=== PATIENT | male | born 1995 | race Caucasian/White ===

== ENCOUNTER 2021-04-19 10:50 | Emergency (ER) | payer SELFPAY ==
[~2021-04-19] VITALS: Ht 180.3 cm; Wt 81.7 kg
[2021-04-19 11:02] VITALS: BP 159/84
[2021-04-19 11:38] LABS: BASO # 0.1 x10^3/uL (0.0-0.2); BASO % 1 % (0-3); EOS % 0 % (0-3); HEMATOCRIT 46.2 % (39.0-53.0); HEMOGLOBIN 16.2 g/dL (13.0-17.5); LYMPH # 1.6 x10^3/uL (1.0-4.8); LYMPH % 16 % (24-48); MEAN CORPUSCULAR HEMOGLOBIN 32 pg (25-35); MEAN CORPUSCULAR HGB CONC 35 g/dL (31-37); MEAN CORPUSCULAR VOLUME 92 fL (79-100); MONO # 0.7 x10^3/uL (0.0-1.1); MONO % 7 % (0-9); NEUT # 7.5 x10^3uL (1.8-7.7); NEUT % 76 % (31-73); PLATELET COUNT 357 x10^3/uL (140-400); RED BLOOD COUNT 5.05 x10^6/uL (4.30-5.70); RED CELL DISTRIBUTION WIDTH 12.3 % (11.5-14.5); WHITE BLOOD COUNT 9.9 x10^3/uL (4.0-11.0)
--- NOTE | 2021-04-19 11:38 | PHYS DOC ---
Past History Past Surgical History: No Surgical History (BERNIE MURILLO APRN) Adult General Chief Complaint Chief Complaint: TESTICULAR PAIN OR INJURY HPI HPI Patient is a 24-year-old male presents to the emergency department concerning left testicular swelling and pain. Patient reports at approximately 1600 yesterday he was lifting heavy objects when he felt a slight discomfort in his left testicle, rated pain less than a 1 out of 10, reports he took no pain medications or other nonpharmacological therapies for discomfort, reports waking up this morning with left testicular swelling and pain rated at a 3 out of 10 [address] any bouncy car or touching or other manual manipulation, otherwise reports he is 0 out of 10 pain. Patient denies penile discharge, burning with urination, increased urinary frequency, denies pain with urination, denies seeing blood in his urine. Denies penile discharge. Denies STI concerns however does report having monogamous sex unprotected with his fiance. Patient states he has not had sex or masturbated or had an erection since the pain started yesterday at 1600. Patient denies abdominal pain or discomfort, denies nausea, vomiting, diarrhea constipation or seeing blood in the stool. Patient denies recent fever or chills, reports his immunizations are up-to-date, denies throat pain or neck pain. Denies difficulty swallowing, denies rashes to his skin or to his genitals. Patient reports a right-sided inguinal hernia repair when he was 7 years old, denies other surgical history, takes no prescription medications or [id number] medications or supplements at home, denies allergies to medicines. Patient denies family history of cancers, and reports a family history of heart disease on his mother and father side of the family. Denies cigarette smoking however does report vaping, occasional EtOH consumption, states he does smoke marijuana. Patient denies other illicit drug use. (BERNIE MURILLO APRN) Review of Systems Review of Systems 14 body systems of review of systems have been reviewed. See HPI for pertinent positives and negative responses, otherwise all other systems are negative, nonpertinent or noncontributory. Constitutional: Negative except as outlined in HPI above. Skin: Negative except as outlined in HPI above. Eyes: Negative except as outlined in HPI above. HENT: Negative except as outlined in HPI above. Respiratory: Negative except as outlined in HPI above. Cardiovascular: Negative except as outlined in HPI above. GI: Negative except as outlined in HPI above. : Negative except as outlined in HPI above. Musculoskeletal: Negative except as outlined in HPI above. Integument: Negative except as outlined in HPI above. Neurologic: Negative except as outlined in HPI above. Endocrine: Negative except as outlined in HPI above. Lymphatic: Negative except as outlined in HPI above. Psychiatric: Negative except as outlined in HPI above. (BERNIE MURILLO APRN) Allergies Allergies Allergies Coded Allergies Type Severity Reaction Last Updated Verified No Known Drug Allergies 04/19/21 No (BERNIE MURILLO APRN) Physical Exam Physical Exam Constitutional: Well developed, well nourished, no acute distress, non-toxic appearance. 24-year-old male in no apparent distress. HENT: Normocephalic, atraumatic. Oropharynx moist, pink, no deep tissue infectious process appreciated, no lymphadenopathy of the head or neck appreciated. Eyes: Conjunctiva normal, no discharge. Neck: Normal range of motion. Cardiovascular: Distal cap refill less than 2 seconds, no cyanosis appreciated. Lungs & Thorax: Patient is in no respiratory distress, no adventitious lung sounds appreciated. Abdomen: Bowel sounds normal, soft, no tenderness, no masses, no pulsatile masses. No bruising or skin discoloration of the abdomen. Skin: Warm, dry, no erythema, no rash. Back: No tenderness, no CVA tenderness. Extremities: No tenderness, no cyanosis, no clubbing, ROM intact, no edema. Neurologic: Alert and oriented X 3, normal motor function, normal sensory function, no focal deficits noted. Psychologic: Affect normal, judgement normal, mood normal. : No rashes or lesions to the penis or genitals or surrounding structures, mild erythema with swelling to the left testicle, no appreciable hernia, pain with palpation of the left testicle, no abnormalities of the right testicle, no discharge from urinary meatus. (BERNIE MURILLO APRN) Current Patient Data Vital Signs Vital Signs Date Time Temp Pulse Resp B/P (MAP) Pulse Ox O2 Delivery O2 Flow Rate FiO2 04/19/21 11:02 110 20 159/84 (109) 99 Lab Results Laboratory Tests Test 04/19/21 11:19 04/19/21 13:11 White Blood Count 9.9 x10^3/uL Red Blood Count 5.05 x10^6/uL Hemoglobin 16.2 g/dL Hematocrit 46.2 % Mean Corpuscular Volume 92 fL Mean Corpuscular Hemoglobin 32 pg Mean Corpuscular Hemoglobin Concent 35 g/dL Red Cell Distribution Width 12.3 % Platelet Count 357 x10^3/uL Neutrophils (%) (Auto) 76 % Lymphocytes (%) (Auto) 16 % Monocytes (%) (Auto) 7 % Eosinophils (%) (Auto) 0 % Basophils (%) (Auto) 1 % Neutrophils # (Auto) 7.5 x10^3uL Lymphocytes # (Auto) 1.6 x10^3/uL Monocytes # (Auto) 0.7 x10^3/uL Eosinophils # (Auto) 0.0 x10^3/uL Basophils # (Auto) 0.1 x10^3/uL Sodium Level 138 mmol/L Potassium Level 3.7 mmol/L Chloride Level 100 mmol/L Carbon Dioxide Level 28 mmol/L Anion Gap 10 Blood Urea Nitrogen 10 mg/dL Creatinine 0.9 mg/dL Estimated GFR (Cockcroft-Gault) 104.6 Glucose Level 134 mg/dL Calcium Level 9.7 mg/dL Urine Collection Type Unknown Urine Color Yellow Urine Clarity Hazy Urine pH 8.0 Urine Specific [place] 1.020 Urine Protein Neg Urine Glucose (UA) Neg mg/dL Urine Ketones (Stick) Neg mg/dL Urine Blood Neg Urine Nitrite Neg Urine Bilirubin Neg Urine Urobilinogen Dipstick 1.0 mg/dL Urine Leukocyte Esterase Neg Urine RBC 0 /HPF Urine WBC 0 /HPF Urine Squamous Epithelial Cells Occ /LPF Urine Bacteria 0 /HPF Current Medications Medications (Trade) Dose Ordered Sig/David Route PRN Reason Start Time Stop Time Status Last Admin Dose Admin Iohexol (Omnipaque 300 Mg/ml) 75 ml 1X ONCE IV 04/19/21 13:45 04/19/21 13:46 DC 04/19/21 13:59 (BERNIE MURILLO APRN) EKG EKG [] (BERNIE MURILLO APRN) Radiology/Procedures Radiology/Procedures PATIENT: ALBERT JARAMILLO ACCOUNT: [id number] : 1995 LOCATION: ER AGE: 25 SEX: M EXAM STATUS: REG ER ORD. PHYSICIAN: BERNIE MURILLO APRN REASON: Left-sided testicular swelling with pain PROCEDURE: TESTICULAR/SCROTUM EXAM: SCROTAL SONOGRAM WITH DOPPLER. HISTORY: Left testicular pain and swelling. COMPARISON: None. FINDINGS: Grayscale and Doppler analysis of the scrotum and contents was performed. The right testicle measures 4.5 x 2.6 x 2.6 cm. The parenchyma is homogeneous without focal lesions. The epididymis appears normal. Internal flow is normal. There is no hydrocele. The left testicle measures 4.5 x 3.2 x 3.9 cm. There is a large region of hypoechogenicity at the proximal pole measuring approximately 3.2 x 2.4 cm. This demonstrates hyperemia. A more focal hypoechoic mass medially measures 15 x 13 x 12 mm and contains small cystic foci. A benign cyst in the epididymal head measures 18 x 14 x 13 mm. Internal flow is normal. There is no hydrocele. IMPRESSION: 1. A 15 mm hypoechoic mass in the left testicle is concerning for neoplasm such as a seminoma. A larger region of hypoechogenicity at the left testicular proximal pole may represent additional tumor or focal orchitis given hyperemia. Correlate with other data. Urologic consultation is recommended. Electronically signed by: Jan Ramirez MD (04/19/2021 12:42 PM) [facility] DICTATED AND SIGNED BY: ABRIL RAMIREZ MD DATE: 04/19/21 1237 CC: BERNIE MURILLO APRN; KRISTINA ZHU MD ~MTH0 0 PATIENT: ALBERT JARAMLILO ACCOUNT: [id number] : 1995 LOCATION: ER AGE: 25 SEX: M EXAM STATUS: REG ER ORD. PHYSICIAN: BERNIE MURILLO APRN REASON: Abnormal testicular ultrasound PROCEDURE: CT CHEST ABD PELVIS W/CONTRAST EXAM: CT OF THE CHEST, ABDOMEN AND PELVIS WITH CONTRAST. HISTORY: Testicular mass. TECHNIQUE: Computed tomography of the chest, abdomen and pelvis was performed after the intravenous administration of iodinated contrast. One or more of the following individualized dose reduction techniques were utilized for this exam ination: 1. Automated exposure control. 2. Adjustment of the mA and/or kV according to patient size. 3. Use of iterative reconstruction technique. COMPARISON: Today's testicular ultrasound. FINDINGS: Bone windows reveal no suspicious lesions. There are no pathologically enlarged mediastinal or axillary lymph nodes. Soft tissue density within the anterior mediastinal fat is likely a thymic remnant. There is no pleural or pericardial effusion. The heart is not enlarged. There is a normal variant origin of the left vertebral artery directly from the aortic arch. Lung windows reveal no infiltrates or suspicious nodules. A single necrotic left para-aortic lymph node is consistent with regional metastasis. It measures 3.3 x 2.1 x 2.9 cm. No other involved lymph nodes are identified. The left testicle is enlarged and heterogeneous. There is a small left hydroceles and a varicocele. The appendix is not inflamed. There is no small bowel obstruction. There is no ascites or peritoneal/omental lesions. A 7 mm hypoattenuating lesion in the spleen is indeterminate but most likely reflects a benign cyst or hemangioma. The liver, gallbladder, pancreas, adrenal glands and kidneys are unremarkable. IMPRESSION: 1. Enlarged, heterogeneous left testicle, consistent with malignancy. Correlate to exclude superimposed inflammation. 2. A single necrotic left para-aortic lymph node is consistent with metastatic disease. No other involved nodes or distant metastatic disease is identified. 3. A 7 mm lesion in the spleen is indeterminate but most likely benign. Attention on further follow-up. Electronically signed by: Jan Ramirez MD (04/19/2021 3:01 PM) [facility] DICTATED AND SIGNED BY: ABRIL RAMIREZ MD DATE: 04/19/21 1440 CC: BERNIE MURILLO APRN; KRISTINA ZHU MD ~MTH0 0 (BERNIE MURILLO APRN) Heart Score C/O Chest Pain: No Risk Factors: Risk Factors: DM, Current or recent (<one month) smoker, HTN, HLP, family history of CAD, obesity. Risk Scores: Risk Factors: DM, Current or recent (<one month) smoker, HTN, HLP, family history of CAD, obesity. (BERNIE MURILLO APRN) Course & Med Decision Making Course & Med Decision Making Pertinent Labs and Imaging studies reviewed. (See chart for details) 25-year-old male, vital signs reviewed, presents emergency department concerning left testicular swelling and pain. Physical examination concerning orchitis versus other testicular process versus hernia, will order testicular sonogram, IV saline lock, CBC, BMP, urinalysis assay, GC chlamydia testing on urine. Offered patient pain medication, patient refused stating he does not hurt at this time when he is sitting still. Abnormal testicular ultrasound concerning for mass of the left testicle, will order CT chest abdomen pelvis with contrast for further investigation, discussed findings with patient and reason for CT of chest abdomen pelvis, discussed with patient will be consulting with urology at [facility] after results. The patient's urine is not infected, there is no hematuria, patient is amenable to ED planning. Abnormal CT scan of chest abdomen pelvis suggestive of metastasis related to concerning necrotic para-aortic lymph node, abnormal spleen finding, called [facility] transfer line and spoke with transfer Customer Service Manager Alexandrea at 1520 who indicated she would contact their urology department physician head bone grinder and retur n call as soon as possible today. 1600 returned phone call from transfer line apparel trimmings sales representative Alexandrea who placed urologist Dr. Noe online, discussed patient case and ED work-up with Dr. Noe who recommended a beta hCG quant, alpha-fetoprotein, LDH be added to the patient's labs, states his office will contact the patient Wednesday or early this week to schedule surgery for removal of the left testicle and ongoing management. Recommended labs were ordered, discussed Dr. Noe's recommendations and planning with patient who is amenable to this plan. Called and discussed patient case and ED work-up with Dr. Meza recommendations with patient's primary care physician Dr. Zhu to make him aware of his patient's condition. ED discharge planning, patient will be contacted by [facility] urologist Dr. Noe to schedule surgery for left testicular removal this week. Discussed with the patient all findings and diagnostic testing as well as the need to follow-up with their primary care provider for further evaluation and treatment or return to the ED if any new or worsening symptoms. Strict return precautions were also discussed at length, the patient voiced understanding and agreement with the discharge planning. The patient was nontoxic in appearance, in no apparent distress, and hemodynamically stable at the time of disposition. (BERNIE MURILLO APRN) Dragon Disclaimer Dragon Disclaimer This electronic medical record was generated, in whole or in part, using a voice recognition dictation system. (BERNIE MURILLO APRN) Attending Co-Sign The patient was seen and interviewed as well as examined at the bedside. The chart was reviewed. The case was discussed. Agree with the plan of care. 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 You had an abnormal testicular ultrasound along with an abnormal CT scan of your chest abdomen pelvis. As we discussed, I have spoken to and discussed your emergency department case and work-up with [facility] urology specialist Dr. Noe who recommends you be seen in his office this week to discuss surgical removal of your left testicle. His office will contact you Wednesday or early this week at the telephone number you provided with our junior accounting clerk's. I have also discussed your case and emergency department work-up with your primary care physician Dr. Zhu so that he is aware of your current healthcare status. Please keep any and all of coming appointments with your urologist Dr. Noe and Dr. Zhu. Thank you for visiting our Emergency Department. It was a pleasure taking care of you today in the emergency department and we appreciate you trusting us with your care. If any additional problems come up don't hesitate to return to visit us. Please follow up with your primary care provider so they can plan additional care if needed and know about the problem that you had. If symptoms worsen come back to the Emergency Department. Any concerning symptoms that start such as chest pain, shortness of air, weakness or numbness on one side of the body, running high fevers or any other concerning symptoms return to the ER. EMERGENCY DEPARTMENT GENERAL DISCHARGE INSTRUCTIONS Thank you for coming to [facility] (ED) today and trusting us with you care. We trust that you had a positivie experience in our Emergency Department. If you wish to speak to the department management, you may call the director at [phone]. YOUR FOLLOW UP INSTRUCTIONS ARE FOLLOWS: 1. Do you have a private Doctor? If you do not have a private doctor, please ask for a resource list of physicians or clinics that may be able to assist you with follow up care. 2. The Emergency Physician has interpreted your x-rays. The X-Ray specialist will also review them. If there is a change in the findings, you will be notified in 48 hours when at all possible. 3. A lab test or culture has been done, your results will be reviewed and you will be notified if you need a change in treatment. ADDITIONAL INSTRUCTIONS AND INFORMATION: 1. Your care today has been supervised by a physician who is specially trained in emergency care. Many problems require more than one evaluation for a complete diagnosis and treatment. We recommend that you schedule your follow up appointment as recommended to ensure complete treatment of you illness or injury. If you are unable to obtain follow up care and continue to have a problem, or if your condition worsens, we recommend that you return to the ED. 2. We are not able to safely determine your condition over the phone nor are we able to give sound medical advice over the phone. For these safety reasons, if you call for medical advice we will ask you to come to the ED for further evaluation. 3. If you have any questions regarding these discharge instructions please call the ED at [phone]. SAFETY INFORMATION: In the interest of safety, wellness, and injury prevention; we encourage you to wear your sealbelt, if you smoke; quite smoking, and we encourage family to use a protective helmet for bicycling and other sporting events that present an increased risk for head injury. IF YOUR SYMPTOMS WORSEN OR NEW SYMPTOMS DEVELOP, OR YOU HAVE CONCERNS ABOUT YOUR CONDITION; OR IF YOUR CONDITION WORSENS WHILE YOU ARE WAITING FOR YOUR FOLLOW UP APPOINTMENT; EITHER CONTACT YOUR PRIMARY CARE DOCTOR, THE PHYSICIAN WHOSE NAME AND NUMBER YOU WERE GIVEN, OR RETURN TO THE ED IMMEDIATELY. Problem Qualifiers BERNIE MURILLO APRN Apr 19, 2021 11:38 [place] MAZARIEGOS DO Apr 20, 2021 06:33
[2021-04-19 11:45] LABS: CALCIUM 9.7 mg/dL (8.5-10.1); CREATININE 0.9 mg/dL (0.7-1.3); GFR 104.6; POTASSIUM 3.7 mmol/L (3.5-5.1)
--- NOTE | 2021-04-19 12:44 | RAD ---
EXAM: SCROTAL SONOGRAM WITH DOPPLER. HISTORY: Left testicular pain and swelling. COMPARISON: None. FINDINGS: Grayscale and Doppler analysis of the scrotum and contents was performed. The right testicle measures 4.5 x 2.6 x 2.6 cm. The parenchyma is homogeneous without focal lesions. The epididymis appears normal. Internal flow is normal. There is no hydrocele. The left testicle measures 4.5 x 3.2 x 3.9 cm. There is a large region of hypoechogenicity at the pro ximal pole measuring approximately 3.2 x 2.4 cm. This demonstrates hyperemia. A more focal hypoechoic mass medially measures 15 x 13 x 12 mm and contains small cystic foci. A benign cyst in the epididym al head measures 18 x 14 x 13 mm. Internal flow is normal. There is no hydrocele. IMPRESSION: 1. A 15 mm hypoechoic mass in the left testicle is concerning for neoplasm such as a seminoma. A larg er region of hypoechogenicity at the left testicular proximal pole may represent additional tumor or focal orchitis given hyperemia. Correlate with other data. Urologic consultation is recommended. Electronically signed by: Jan Ramirez MD (04/19/2021 12:42 PM) [facility]
[2021-04-19 13:35] LABS: BACTERIA,URINE 0 /HPF (0-FEW); BILIRUBIN,URINE NEG (NEG); CLARITY,URINE HAZY; COLOR,URINE YELLOW; GLUCOSE,URINE NEG (NEG); NITRITE,URINE NEG (NEG); RBC,URINE 0 /HPF (0-2); SQUAMOUS EPITHELIAL CELL,UR OCC /LPF; WBC,URINE 0 /HPF (0-4)
[2021-04-19] MEDS ORDERED: IOHEXOL 300 MG/ML 75 ML VIAL. IV ONE (13:45)
--- NOTE | 2021-04-19 15:03 | RAD ---
EXAM: CT OF THE CHEST, ABDOMEN AND PELVIS WITH CONTRAST. HISTORY: Testicular mass. TECHNIQUE: Computed tomography of the chest, abdomen and pelvis was performed after the intravenous a dministration of iodinated contrast. One or more of the following individualized dose reduction techn iques were utilized for this examination: 1. Automated exposure control. 2. Adjustment of the mA and/or kV according to patient size. 3. Use of iterative reconstruction technique. COMPARISON: Today's testicular ultrasound. FINDINGS: Bone windows reveal no suspicious lesions. There are no pathologically enlarged mediastinal or axillary lymph nodes. Soft tissue density within the anterior mediastinal fat is likely a thymic remnant. There is no pleural or pericardial effusion. The heart is not enlarged. There is a normal variant origin of the left vertebral artery directly fr om the aortic arch. Lung windows reveal no infiltrates or suspicious nodules. A single necrotic left para-aortic lymph node is consistent with regional metastasis. It measures 3.3 x 2.1 x 2.9 cm. No other involved lymph nodes are identified. The left testicle is enlarged and heterogeneous. There is a small left hydroceles and a varicocele. The appendix is not inflamed. There is no small bowel obstruction. There is no ascites or peritoneal/ omental lesions. A 7 mm hypoattenuating lesion in the spleen is indeterminate but most likely reflects a benign cyst o r hemangioma. The liver, gallbladder, pancreas, adrenal glands and kidneys are unremarkable. IMPRESSION: 1. Enlarged, heterogeneous left testicle, consistent with malignancy. Correlate to exclude superimpos ed inflammation. 2. A single necrotic left para-aortic lymph node is consistent with metastatic disease. No other invo lved nodes or distant metastatic disease is identified. 3. A 7 mm lesion in the spleen is indeterminate but most likely benign. Attention on further follow-u p. Electronically signed by: Jan Ramirez MD (04/19/2021 3:01 PM) [facility]
== END 2021-04-19 16:40 | disposition home or self-care (01) ==
LOC: ER 10:50
DX: D40.12 Neoplasm of uncertain behavior of left testis (principal); R93.5 Abnormal findings on diagnostic imaging of other abdominal regions, including retroperitoneum
CPT/HCPCS: 36415; 71260; 74177; 76870; 80048; 81001; 82105; 83615; 84702; 85025; 87491; 87591; 99285; Q9967